=== PATIENT | male | born 1995 | race Caucasian/White ===

== ENCOUNTER 2023-03-01 20:22 | Emergency (ER) | payer OTHER, MEDICAID, SELFPAY ==
[2023-03-01] VITALS (9 sets, daily range): BP systolic 123–138; BP diastolic 84–91; PULSE 63–222; RESP 16; TEMP 36.6; O2SAT 79–99; BMI 22.4
--- NOTE | 2023-03-01 20:29 | ED.GENADULT ---
HPI - General Adult General Time Seen by Provider: 20:29 Date Seen: 03/01/23 Chief complaint: Overdose Stated complaint: OD Time Seen by Provider: 03/01/23 20:31 Source: patient, RN notes reviewed and old records reviewed Mode of arrival: ambulatory Limitations: no limitations History of Present Illness HPI narrative: 27y/o male with h/o opiate abuse and addiction, presents with Fentanyl and suboxone ingestion. Reviewed prior ED note from October 2022 when patient was seen for withdrawal symptoms. Patient reports he took Fentanyl this morning and suboxone this evening. Patient c/o palpitations, n/v/d, abd pain, feeling anxious. Patient has been using opiates regularly for a while. Related Data Home Medications Medication Instructions Recorded Confirmed No Known Home Medications 11/11/22 11/11/22 Allergies Allergy/AdvReac Type Severity Reaction Status Date / Time No Known Drug Allergies Allergy Verified 03/01/23 20:38 PFSH PFSH Social History Smoking Status: Former smoker Do you use any of these nicotine containing products: E-Cigarettes and Vaping Products How often do you have a drink containing alcohol: never AUDIT-C Alcohol total score: 0 Non-prescribed substance use: marijuana (any form) and other Non-prescribed substance use details: fentanyl, smokes Exam Narrative: Exam Narrative: General: Well-developed and well-nourished, no acute distress Head: Atraumatic and normocephalic Eyes: Pupils are equal reactive, extraocular motions intact, conjunctiva clear ENT: External nose and ears are normal, posterior pharynx without erythema or exudate Neck: No midline cervical tenderness, full spontaneous range of motion the neck, trachea midline, no adenopathy Heart: Regular rate and rhythm no murmurs or thrills Lungs: Clear to auscultation bilaterally without wheezes or crackles Abdomen: Soft, nontender, nondistended with active bowel sounds Musculoskeletal: No tenderness, deformity, or edema Neurologic: Awake, alert, and oriented x3, no gross focal neurologic deficits, cranial nerves intact as tested Psych: Mood and affect are appropriate Skin: No rashes Const: Vital Signs, click to edit/add: Vital Signs - 24 hr 03/01/23 20:34 Temperature 97.9 F Pulse Rate [Right Pulse Oximeter] 73 Respiratory Rate 16 Blood Pressure [Le ft Upper Arm] 138/91 H Pulse Oximetry 98 Course Course ED Course: Patient seen and examined, prior records reviewed. Patient with history of and ongoing opiate abuse presents with precipitated withdrawal related to suboxone ingestion in the setting of chronic abuse. Vitally stable, Zofran and Ativan ordered, will monitor in the ED. Care discussed with Poison Control, consider Zyprexa for severe agitation. Reevaluation(s) Time of Reevaluation #1: 21:47 Reevaluation #1: Labs independently interpreted by me with reassuring basic panel, drug screen is pending. Patient remains comfortable and finally stable, anticipate discharge. Time of Reevaluation #2: 22:38 Reevaluation #2: Urine drug screening panel interpreted by me negative which is interesting given history of opiate dependence and stated symptoms. Patient requesting repeat Ativan and 1 dose orally will be given in the emergency department with discharged with Ativan and Zofran. Vital Signs Vital signs: Initial Vital Signs Temperature 97.9 F 03/01/23 20:34 Temperature Source Oral 03/01/23 20:34 Pulse Rate 73 03/01/23 20:34 Respiratory Rate 16 03/01/23 20:34 Blood Pressure 138/91 H 03/01/23 20:34 Blood Pressure Mean 106 H 03/01/23 20:34 Blood Pressure Position Supine 03/01/23 20:34 Pulse Oximetry 98 03/01/23 20:34 Vital Signs Temperature 97.9 F 03/01/23 20:34 Pulse Rate 73 03/01/23 20:34 Respiratory Rate 16 03/01/23 20:34 Blood Pressure 138/91 H 03/01/23 20:34 Pulse Oximetry 98 03/01/23 20:34 Temperature 97.9 F 03/01/23 20:34 Pulse Rate 73 03/01/23 20:34 Respiratory Rate 16 03/01/23 20:34 Blood Pressure 138/91 H 03/01/23 20:34 Pulse Oximetry 98 03/01/23 20:34 Medical Decision Making Lab Data Labs: Lab Results 03/01/23 03/01/23 Range/Units 20:35 21:55 Sodium 141 (135-149) mmol/L Potassium 3.8 (3.6-5.1) mmol/L Chloride 103 (96-114) mmol/L Carbon Dioxide 26 (20-32) mmol/L Anion Gap 12 (7-15) mEq/L BUN 14 (5-24) mg/dL Creatinine 0.7 (0.5-1.5) mg/dL Estimated Creat Clear 172.89 Estimated GFR 130 ml/min Glucose 121 H (60-115) mg/dL Calcium 9.9 (8.4-10.6) mg/dL Urine Opiates Screen Negative (Negative) Ur Oxycodone Screen Negative (Negative) Urine Methadone Screen Negative (Negative) Ur Propoxyphene Screen Negative (Negative) Ur Barbiturates Screen Negative (Negative) U Tricyclic Antidepress Negative (Negative) Ur Phencyclidine Scrn Negative (Negative) Ur Amphetamines Screen Negative (Negative) U Methamphetamines Scrn Negative (Negative) U Benzodiazepines Scrn Negative (Negative) Urine Cocaine Screen Negative (Negative) U Marijuana (THC) Screen POSITIVE A (Negative) Ur Drug Screen Comment See Note Discharge Plan Discharge Clinical Impression: Withdrawal from opioids, Opiate dependence, continuous Patient Disposition: Home w/ Parent or Adult Condition: Stable Instructions: Opioid Withdrawal (ED), Opioid Use Disorder (ED) Additional Instructions: Take Ativan and Zofran as needed for symptom management. Do not take Ativan while your taking Suboxone or opiates as they may cause sedation. Activity Level: No Restrictions Prescriptions: No Action No Known Home Medications Follow Up/Referrals: Provider,Not a Local [Primary Care Provider] - Stand Alone Forms: [facility] Info Instructions
[2023-03-01] MEDS: 0.9 % SODIUM CHLORIDE 1000 ml 1,000 ML IV (21:03)
[2023-03-01] MEDS: LORazepam 2 MG/ML inj 0.5 MG IVP (21:04)
[2023-03-01] MEDS: ONDANSETRON 2 MG/ML inj 4 MG IVP (21:06)
[2023-03-01] MEDS: KETOROLAC 15 MG/ML inj IVP (21:10)
[2023-03-01 21:12] LABS: Chloride* 103 mmol/L (96-114); Potassium* 3.8 mmol/L (3.6-5.1); Sodium* 141 mmol/L (135-149)
[2023-03-01 21:15] LABS: Anion Gap 12 mEq/L (7-15); Blood Urea Nitrogen* 14 mg/dL (5-24); Carbon Dioxide* 26 mmol/L (20-32); Creatinine* 0.7 mg/dL (0.5-1.5); Est. Creatinine Clearance* 172.89; Estimated Glomerular Filt Rate 130 ml/min; Glucose* 121 mg/dL (60-115)
[2023-03-01 21:16] LABS: Calcium* 9.9 mg/dL (8.4-10.6)
[2023-03-01 22:10] LABS: Amphetamine Screen Urine Negative (Negative); Barbiturate Screen Urine Negative (Negative); Benzodiazepines Screen Urine Negative (Negative); Cannabinoid Screen Urine POSITIVE (Negative); Cocaine Screen Urine Negative (Negative); Methadone Screen Urine Negative (Negative); Methamphetamines Screen Urine Negative (Negative); Opiate Screen Urine Negative (Negative); Oxycodone Screen Urine Negative (Negative); Phencyclidine Screen Urine Negative (Negative); Tricyclic Antidepressant Urine Negative (Negative)
[2023-03-01] MEDS: LORazepam 0.5 MG TABLET PO (22:43)
== END 2023-03-01 22:57 | disposition home or self-care (01) ==
PROVIDERS: Emergency Provider Family Medicine
DX: F11.23 Opioid dependence with withdrawal (principal)
CPT/HCPCS: 36415; 80048; 80306; 96374; 96375; 99284; A9270; J1885; J2060; J2405; J7030